=== PATIENT | male | born 1935 | race Caucasian/White ===

== ENCOUNTER 2017-03-09 18:33 | Emergency (ER) | payer OTHER ==
--- NOTE | 2017-03-09 19:01 | CPEKG ---
Heart Rate: 78 RR Interval: 769 P-R Interval: 192 QRSD Interval: 98 QT Interval: 396 QTC Interval: 452 P Banner: 4 QRS Banner: -41 T Wave Banner: 50 EKG Severity - ABNORMAL ECG - EKG Impression: SINUS RHYTHM EKG Impression: LEFT ANTERIOR FASCICULAR BLOCK EKG Impression: LEFT VENTRICULAR HYPERTROPHY Electronically Signed By: Mathew Morris 09-Mar-2017 23:01:04
[2017-03-09 19:15] LABS: % IMMATURE GRANULYOCYTES 0.3 % (0.0-1.1); ABSOLUTE IMMATURE GRANULOCYTES 0.03 10^3/uL (0.00-0.10); ADD DIFF? NO; ADD MORPH? NO; ADD SCAN? NO; ATYPICAL LYMPHOCYTE FLAG 20 (0-99); FRAGMENT RBC FLAG 0 (0-99); HEMATOCRIT 41.3 % (40.0-51.0); HEMOGLOBIN 14.2 g/dL (13.7-17.5); LEFT SHIFT FLG 0 (0-99); LIPEMIA HEMOLYSIS FLAG 90 (0-99); MEAN CELL HEMOGLOBIN 30.7 pg (27.9-34.1); MEAN CELL HEMOGLOBIN CONCENTR. 34.4 g/dL (32.4-36.7); MEAN CELL VOLUME 89.2 fL (81.5-99.8); MEAN PLATELET VOLUME 9.2 fL (8.7-11.7); PLATELET CLUMPS FLAG 0 (0-99); PLATELET COUNT 233 10^3/uL (150-400); RED BLOOD CELL COUNT 4.63 10^6/uL (4.40-6.38); RED CELL DISTRIBUTION WIDTH 13.9 % (11.5-15.2)
[2017-03-09 19:35] LABS: ANION GAP 14 mEq/L (8-16); CALCIUM 9.4 mg/dL (8.5-10.4); CARBON DIOXIDE 22 mEq/l (22-31); CHLORIDE 103 mEq/L (97-110); CREATININE 1.2 mg/dL (0.7-1.3); GLOMERULAR FILTRATION RATE 58; GLUCOSE 112 mg/dL (70-100); POTASSIUM 3.4 mEq/L (3.5-5.2); SODIUM 139 mEq/L (134-144)
[2017-03-09 19:47] LABS: TROPONIN I < 0.012 ng/mL (0-0.034)
--- NOTE | 2017-03-09 20:04 | EDPHY ---
H & P Time Seen by Provider: 03/09/17 18:54 HPI/ROS: CHIEF COMPLAINT: Shortness of breath HISTORY OF PRESENT ILLNESS: Patient arrives from [place] this week on Sunday and started having shortness of breath starting the day he arrived. He says he feels labored breathing is worse lying flat and better standing up and has lasted for the past 2 days. It is not associated with cough or chest pain or leg swelling or fever. Symptoms mild to moderate and worse with exertion. REVIEW OF SYSTEMS: Eye: no change in vision ENT: no sore throat Cardiac: no chest pain or syncope Pulmonary: HPI Abdomen: no vomiting, diarrhea, abdominal pain Musculoskeletal: no back pain Skin: no rash Neuro: no headache Constitutional: no fever : no urinary symptoms A comprehensive 10 point review of systems is otherwise negative aside from elements mentioned in the history of present illness. PAST MEDICAL HISTORY: Left shoulder surgery and asthma, gout Social history: Visiting from [place], nonsmoker General Appearance: Alert and conversant, cooperative. Eyes: No scleral icterus. ENT, Mouth: Normal mucous membranes. Respiratory: Normal respiratory effort, breath sounds equal, very slight anterior expiratory wheeze bilaterally. Cardiovascular: Regular rate and rhythm. Gastrointestinal: Abdomen is soft and non tender. Neurological: Alert and oriented x3. Normally conversant. Face symmetric, normal movement and sensation in all extremities. Skin: Warm and dry, no rashes. Musculoskeletal: No peripheral edema and no joint swelling. No calf tenderness. Psychiatric: Not agitated. Emergency Department course/MDM: 2004: Labs reviewed including negative D-dimer, negative troponin, BNP 700, chest x-ray results. At his age in with his chest x-ray results I do not believe his BNP represents heart failure. 2020: Re-evaluated, DuoNeb given. Low pretest clinical suspicion for PE, D-dimer less than 0.5. 2054: Patient walked well, feels better, slight wheezing. Prednisone and nebulizer treatment, stable for discharge. Most likely to be exacerbation of his reactive airway disease. He states he feels better and wants to go home. Agrees with outpatient management. Smoking Status: Never smoked Constitutional: Initial Vital Signs Temperature (C) 36.5 C 03/09/17 18:50 Heart Rate 78 03/09/17 18:50 Respiratory Rate 18 03/09/17 18:50 Blood Pressure 146/80 H 03/09/17 18:50 O2 Sat (%) 93 03/09/17 18:50 O2 Delivery Mode Room Air Allergies/Adverse Reactions: Penicillins Allergy (Verified 03/09/17 18:48) Home Medications: Medication Instructions Recorded Aspirin 81mg (*) 03/09/17 Proair Hfa 03/09/17 Singulair 03/09/17 Symbicort 160-4.5 Mcg Inh (*) 03/09/17 predniSONE 10 mg PO AD #15 tab 03/09/17 Medical Decision Making - Diagnostics EKG Interpretation: 12-lead EKG interpreted by me; official reading is in trace master. My interpretation is sinus rhythm with PVC and left anterior fascicular block. Imaging Results: Imaging Impressions Chest X-Ray 03/09/17 19:07 Impression: 1. Airways disease without pneumonia or atelectasis. 2. Tortuous thoracic aortic aneurysm. Differential Diagnosis: Differential diagnosis considered for shortness of breath including but not limited to reactive airway disease, pulmonary infectious process, COPD, asthma, pulmonary embolus and congestive heart failure. - Data Points Laboratory Results: Laboratory Results 03/09/17 19:05 03/09/17 19:05 03/09/17 03/09/17 03/09/17 19:05 19:05 19:05 WBC 9.15 10^3/uL 10^3/uL (3.80-9.50) RBC 4.63 10^6/uL 10^6/uL (4.40-6.38) Hgb 14.2 g/dL g/dL (13.7-17.5) Hct 41.3 % % (40.0-51.0) MCV 89.2 fL fL (81.5-99.8) MCH 30.7 pg pg (27.9-34.1) MCHC 34.4 g/dL g/dL (32.4-36.7) RDW 13.9 % % (11.5-15.2) Plt Count 233 10^3/uL 10^3/uL (150-400) MPV 9.2 fL fL (8.7-11.7) Neut % (Auto) 67.9 % % (39.3-74.2) Lymph % (Auto) 15.4 % % (15.0-45.0) [place] % (Auto) 5.7 % % (4.5-13.0) Eos % (Auto) 9.9 % H % (0.6-7.6) Baso % (Auto) 0.8 % % (0.3-1.7) Nucleat RBC Rel Count 0.0 % % (0.0-0.2) Absolute Neuts (auto) 6.21 10^3/uL 10^3/uL (1.70-6.50) Absolute Lymphs (auto) 1.41 10^3/uL 10^3/uL (1.00-3.00) Absolute Monos (auto) 0.52 10^3/uL 10^3/uL (0.30-0.80) Absolute Eos (auto) 0.91 10^3/uL H 10^3/uL (0.03-0.40) Absolute Basos (auto) 0.07 10^3/uL 10^3/uL (0.02-0.10) Absolute Nucleated RBC 0.00 10^3/uL 10^3/uL (0-0.01) Immature Gran % 0.3 % % (0.0-1.1) Immature Gran # 0.03 10^3/uL 10^3/uL (0.00-0.10) D-Dimer 0.34 ug/mLFEU ug/mLFEU (0.00-0.50) Sodium 139 mEq/L mEq/L (134-144) Potassium 3.4 mEq/L L mEq/L (3.5-5.2) Chloride 103 mEq/L mEq/L (97-110) Carbon Dioxide 22 mEq/l mEq/l (22-31) Anion Gap 14 mEq/L mEq/L (8-16) BUN 18 mg/dL mg/dL (7-23) Creatinine 1.2 mg/dL mg/dL (0.7-1.3) Estimated GFR 58 Glucose 112 mg/dL H mg/dL (70-100) Calcium 9.4 mg/dL mg/dL (8.5-10.4) Troponin I < 0.012 ng/mL ng/mL (0-0.034) NT-Pro-B Natriuret Pep 723 pg/mL H pg/mL (0-450) Medications Given: Discontinued Medications Albuterol (Proventil Neb) 3 ml IH EDNOW ONE Stop: 03/09/17 20:59 Last Admin: 03/09/17 21:05 Dose: 3 ml Albuterol/Ipratropium (Duoneb) 3 ml IH EDNOW ONE Stop: 03/09/17 20:20 Last Admin: 03/09/17 20:26 Dose: 3 ml Prednisone (Prednisone) 60 mg PO EDNOW ONE Stop: 03/09/17 20:59 Last Admin: 03/09/17 21:05 Dose: 60 mg Departure - Departure Disposition: Home, Routine, Self-Care Clinical Impression: Dyspnea Qualifiers: Dyspnea type: unspecified Qualified Code(s): R06.00 - Dyspnea, unspecified Asthma Qualifiers: Asthma severity: unspecified severity Asthma complication type: with acute exacerbation Qualified Code(s): J45.901 - Unspecified asthma with (acute) exacerbation Condition: Good Instructions: Asthma (ED) Referrals: NETTE MANRIQUE MD [Other] - As per Instructions Prescriptions: predniSONE 10 mg PO AD #15 tab
[2017-03-09] MEDS ORDERED: IPRATROPIUM/ALBUTEROL 3 ML DEYVIAL IH ONE (20:19)
[2017-03-09] MEDS ORDERED: ALBUTEROL 3 ML DEYVIAL IH ONE (20:58)
[2017-03-09] MEDS ORDERED: predniSONE 20 MG TAB PO ONE (20:58)
[2017-03-09 21:40] VITALS: BP 123/78; PULSE 72; RESP 20; TEMP 97.5; O2SAT 98
== END 2017-03-09 21:39 | disposition home or self-care (01) ==
DX: J45.901 Unspecified asthma with (acute) exacerbation (principal); Z79.82 Long term (current) use of aspirin